=== PATIENT | male | born 1970 | race Caucasian/White ===

== ENCOUNTER 2017-03-28 19:46 | Emergency (ER) | payer OTHER ==
[2017-03-28] MEDS ORDERED: TDAP ADULT 0.5 ML INJ (BOOSTRIX) IM ONE (20:11)
--- NOTE | 2017-03-28 20:14 | EDPHY ---
H & P Time Seen by Provider: 03/28/17 20:01 HPI/ROS: CHIEF COMPLAINT: Left index finger skin avulsion HISTORY OF PRESENT ILLNESS: 46-year-old [id number] male with out-of- date tetanus was cutting her EpiPen use, sustained accidental laceration left knee this finger distal phalanx skin avulsion. Occurred shortly prior to arrival. No paresthesia. PRIMARY CARE PROVIDER: REVIEW OF SYSTEMS: A ten point review of systems was performed and is negative with the exception of the items mentioned in the HPI PHYSICAL EXAM (Prior to examination, patient consented to physical exam, hands were washed and my usual and customary physical exam procedures followed) 1) GENERAL: Well-developed, well-nourished, alert and oriented. Appears to be in no acute distress. 2) HEAD: Normocephalic 3) HEENT: sclera anicteric 4) LUNGS: Breathing comfortably. 5) SKIN: Left index finger distal phalanx dorsal aspect superficial skin avulsion partially involving the nail bed. There is a flap tissue attached by approximately 1 mm of tissue. The flap is nonviable. 6) MUSCULOSKELETAL: FDP FDS function intact. Extensor function intact. 7) NEUROLOGIC: Two-point discrimination intact. Smoking Status: Never smoked Constitutional: Initial Vital Signs Temperature (C) 37.0 C 03/28/17 19:48 Heart Rate 70 03/28/17 19:48 Respiratory Rate 16 03/28/17 19:48 Blood Pressure 134/79 H 03/28/17 19:48 O2 Sat (%) 98 03/28/17 19:48 O2 Delivery Mode Room Air Allergies/Adverse Reactions: No Known Allergies Allergy (Unverified 03/28/17 19:47) Home Medications: Medication Instructions Recorded NK [No Known Home Meds] 03/28/17 MDM/Departure - MDM Procedures: Procedure: Wound management The digit was anesthetized with digital nerve block of 0.5% plain bupivacaine achieving anesthesia distally myself. There the wound is then cleaned and dressed with Surgicel by ER staff. The flap of tissue is removed by myself. Patient tolerated procedure well. ED Course/Re-evaluation: Care of patient under supervision of secondary supervising physician Dr Yu. - Depart Disposition: Home, Routine, Self-Care Clinical Impression: Avulsion of skin of finger Qualifiers: Encounter type: initial encounter Qualified Code(s): S61.209A - Unspecified open wound of unspecified finger without damage to nail, initial encounter Condition: Good Instructions: Skin Avulsion (ED) Additional Instructions: Return to the ER if you develop redness, swelling, discharge, warmth to the wound, or any other symptoms that concern you. Referrals: Emily Guardado MD [Primary Care Provider] - 5-7 days, call for appt.
[2017-03-28 21:26] VITALS: BP 119/77; PULSE 71; RESP 18; TEMP 98.1; O2SAT 96
== END 2017-03-28 21:25 | disposition home or self-care (01) ==
DX: S61.201A Unspecified open wound of left index finger without damage to nail, initial encounter (principal); Z23 Encounter for immunization; W45.8XXA Other foreign body or object entering through skin, initial encounter